=== PATIENT | female | born 1945 | race Caucasian/White ===

== ENCOUNTER 2022-09-18 09:53 | Outpatient (CLI) | payer MEDICARE | END 2022-09-18 09:54 | disposition home or self-care (01) | LOC: CSHMAMMO 09:53 | PROVIDERS: ATTEND Family Medicine | DX: Z12.31 Encounter for screening mammogram for malignant neoplasm of breast (principal); Z85.528 Personal history of other malignant neoplasm of kidney; Z91.89 Other specified personal risk factors, not elsewhere classified | CPT/HCPCS: 77063; 77067 ==